=== PATIENT | male | born 1965 | race Hispanic/Latino ===

== ENCOUNTER → 2016-10-07 | Outpatient (CLI) | payer BC ==
[~2016-10-07] MED LIST: NAPR220T76 PO
--- NOTE | 2016-10-07 09:40 | Diagnostic Imaging Report ---
INDICATION: Palpable left testicular nodule. COMPARISON: None. DISCUSSION: Sonographic evaluation of the scrotum was performed. The testicles appear normal and symmetric in echotexture and size bilaterally with normal color and spectral Doppler blood flow. The right testicle measures 4.2 x 1.8 x 3.3 cm. Left testicle measures 4.4 x 1.9 x 3.3 cm. Cyst within the left epididymis measures 1.1 cm and appears to account for the patient's palpable finding. Cyst is benign. The epididymides are otherwise unremarkable. No hydrocele or varicocele. The scrotal wall is unremarkable. IMPRESSION: 1. Benign cyst within the left epididymis accounts for patient's palpable finding. No intratesticular mass identified. Dictated by: Dictated on workstation # [id number]
== END ==
LOC: RAD 08:21
PROVIDERS: ATTEND Family Medicine
DX: N44.2 Benign cyst of testis (principal)
CPT/HCPCS: 76870